=== PATIENT | male | born 1995 | race American Indian/Alaskan Native ===

== ENCOUNTER 2017-03-31 04:49 | Emergency (ER) | payer OTHER ==
[2017-03-31 05:36] LABS: Urine Drugs of Abuse Note Disclamer
[2017-03-31 05:48] LABS: Bacteria,Urine 1+ /HPF (Negative); Bilirubin,Urine NEG (Negative); Blood,Urine NEG (Negative); Ketones,Urine TR mg/dL (Negative); Leukocyte Esterase,Urine NEG (Negative); Mucus,Urine 1+ /HPF; Nitrite,Urine NEG (Negative)
--- NOTE | 2017-03-31 06:07 | Emergency Department Report ---
ED Psych HPI - General Chief Complaint: Psych Stated Complaint: KELLEE NORMAN Time Seen by Provider: 03/31/17 05:25 Source: patient Mode of arrival: Ambulatory - History of Present Illness Initial Comments: 21 YO MALE BROUGHT TO ED BECAUSE OF HOMOCIDAL IDEATION. HE DENIES THIS AND IS NONCOOPERATIVE AND THUS IS IN ISOLATION ROOM. WALKED WITH A LIMP AND WHEN ASKED ABOUT THIS , HE SAYS WHEN HE RECENTLY CAME FROM ALF IT BEGAN HURTING AND HAS GOTTEN WORSE. PT IS ANGRY Complaint: other (HOMOCIDAL IDEATION) -: Sudden Associated Psychiatric Symptoms: homicidal ideation History of same: Yes Improves With: none Worsens With: none Associated Symptoms: denies other symptoms Treatments Prior to Arrival: placed on mental he - Related Data Home Medications Medication Instructions Recorded Confirmed Last Taken No Known Home Medications [No 03/31/17 03/31/17 Unknown Reported Home Medications] Allergies Allergy/AdvReac Type Severity Reaction Status Date / Time No Known Allergies Allergy Verified 03/31/17 05:32 ED Review of Systems ROS: Stated complaint: KELLEE EVAL Other details as noted in HPI Constitutional: denies: chills, fever Eyes: denies: eye pain, eye discharge, vision change ENT: denies: ear pain, throat pain Respiratory: denies: cough, shortness of breath, wheezing Cardiovascular: denies: chest pain, palpitations Endocrine: no symptoms reported Gastrointestinal: denies: abdominal pain, nausea, diarrhea Genitourinary: denies: urgency, dysuria Musculoskeletal: arthralgia, other (LEFT MID THIGH PAIN). denies: back pain, joint swelling Skin: denies: rash, lesions Neurological: denies: headache, weakness, paresthesias Psychiatric: denies: anxiety, depression Hematological/Lymphatic: denies: easy bleeding, easy bruising ED Past Medical Hx - Past Medical History Previous Medical History?: Yes - Surgical History Past Surgical History?: No - Social History Smoking Status: Light Tobacco Smoker - Medications Home Medications: Home Medications Medication Instructions Recorded Confirmed Last Taken Type No Known Home Medications [No 03/31/17 03/31/17 Unknown History Reported Home Medications] ED Physical Exam - General Limitations: No Limitations General appearance: alert, other (ANGRY NONCOOPERATIVE) - Head Head exam: Present: atraumatic, normocephalic - Eye Eye exam: Present: normal appearance, EOMI - ENT ENT exam: Present: mucous membranes moist - Neck Neck exam: Present: normal inspection - Respiratory Respiratory exam: Present: normal lung sounds bilaterally. Absent: respiratory distress - Cardiovascular Cardiovascular Exam: Present: regular rate, normal rhythm. Absent: systolic murmur, diastolic murmur, rubs, gallop - GI/Abdominal GI/Abdominal exam: Present: soft, normal bowel sounds - Rectal Rectal exam: Present: deferred - Extremities Exam Extremities exam: Present: normal inspection, tenderness (LEFT MID THIGH) - Back Exam Back exam: Present: normal inspection, full ROM - Neurological Exam Neurological exam: Present: alert, oriented X3, CN II-XII intact, abnormal gait (SECONDARY TO PAIN) - Psychiatric Psychiatric exam: Present: agitated, other (ANGRY) - Skin Skin exam: Present: warm, dry, intact, normal color. Absent: rash Critical care attestation.: If time is entered above; I have spent that time in minutes in the direct care of this critically ill patient, excluding procedure time. ED Disposition Clinical Impression: Oppositional defiant behavior Condition: Stable Referrals: PRIMARY CARE, [Primary Care Provider] - 3-5 Days
[2017-03-31 06:18] LABS: Basophils % (Auto) 0.2 % (0.0-1.8); Eosinophils % (Auto) 0.4 % (0.0-4.3); Hematocrit 44.4 % (35.5-45.6); Hemoglobin 14.9 gm/dl (11.8-15.2); Mean Corpuscular HGB Conc 34 % (32-34); Mean Corpuscular Hemoglobin 32 pg (28-32); Mean Corpuscular Volume 95 fl (84-94); Platelet Count 337 K/mm3 (140-440); Red Blood Count 4.69 M/mm3 (3.65-5.03); Red Cell Distribution Width 13.2 % (13.2-15.2); White Blood Count 11.2 K/mm3 (4.5-11.0)
[2017-03-31 06:25] LABS: Anion Gap 17 mmol/L; BUN/Creatinine Ratio 12; Blood Urea Nitrogen 15 mg/dL (9-20); Calcium 9.6 mg/dL (8.4-10.2); Carbon Dioxide 27 mmol/L (22-30); Chloride 104.7 mmol/L (98-107); Glucose 117 mg/dL (75-100); Potassium 4.4 mmol/L (3.6-5.0); Sodium 144 mmol/L (137-145)
--- NOTE | 2017-03-31 07:01 | XRay Report ---
FINAL REPORT EXAM: XR HIP 2-3V LT HISTORY: Left Hip PAIN TECHNIQUE: Three views of the left hip and pelvis were obtained. FINDINGS: The left hip joint appears normal. The bony pelvic ring appears intact. The SI joints and right hip joint appear normal. The soft tissues are unremarkable. IMPRESSION: Within normal limits.
--- NOTE | 2017-03-31 07:07 | XRay Report ---
FINAL REPORT EXAM: XR KNEE 1-2V LT HISTORY: Left Knee PAIN TECHNIQUE: AP and lateral views of the left knee were submitted. FINDINGS: There are no skeletal or soft tissue abnormalities. IMPRESSION: Normal exam.
--- NOTE | 2017-03-31 07:09 | XRay Report ---
FINAL REPORT EXAM: XR FEMUR 2+V LT HISTORY: Left THIGH PAIN TECHNIQUE: Three views of the left femur were obtained. FINDINGS: There are no skeletal or soft tissue abnormalities. IMPRESSION: Within normal limits.
--- NOTE | 2017-03-31 13:03 | Consultation ---
History of Present Illness - Reason for Consult Consult date: 03/31/17 Reason for consult: Mental Healt Evaluation Requesting physician: GAURANG MCGREGOR - Chief Complaint Chief complaint: "I was upset" - History of Present Psychiatric Illness 21 y.o. AA male presenting to [facility] for HI's. Today patient is calm and cooperative during the assessment. He stated that he was angry when he made the statement about wanting to kill his brother. He stated that he was drinking ( etoh) (4 beers) prior to that statement. He stated that his brother and some other guys got into an argument and things escalated for no reason. When asked about a mental health dx, he stated that he was dx with Bipolar DO in [facility] a couple months ago. He stated that he took a pill for Bipolar DO, but cannot recall the name of the medication. He denies being irritable and depressed, but admit to having problems initiating sleep. He denies SI/HI's and AVH's. He denies recreational drug use, but stated that he does consume alcohol (etoh) often. Medications and Allergies Allergies Allergy/AdvReac Type Severity Reaction Status Date / Time No Known Allergies Allergy Verified 03/31/17 05:32 Home Medications Medication Instructions Recorded Confirmed Last Taken Type No Known Home Medications [No 03/31/17 03/31/17 Unknown History Reported Home Medications] Past psychiatric history - Past Medical History Past Medical History: other (Leg pain bilaterally) Past Surgical History: No surgical history - past Psychiatric treatment and history psychiatric treatment history: He stated that he was dx with Bipolar DO in [facility]. Denies a fam psy hx. - Social History Social history: lives with family Mental Status Exam - Vital signs Last Vital Signs Temp 98.2 F 03/31/17 09:39 Pulse 87 03/31/17 09:39 Resp 20 03/31/17 09:39 BP 130/67 03/31/17 09:39 Pulse Ox 99 03/31/17 09:39 - Exam Narrative exam: MSE: Appearance: calm, cooperative Behavior: regular eye contact Speech: regular rate and tone Mood: "well" Affect: congruent to mood Thought Process: circumstantial Thought Content: denies SI/HI's and VH's Motor Activity: lying in bed Cognition: A/O x3 Insight: variable Judgment: variable Results Result Diagrams: 03/31/17 06:01 03/31/17 06:01 Abnormal lab results 03/31/17 03/31/17 03/31/17 Range/Units 05:34 06:01 06:01 WBC 11.2 H (4.5-11.0) K/mm3 MCV 95 H (84-94) fl Lymph % (Auto) 8.8 L (13.4-35.0) % Lymph # 1.0 L (1.2-5.4) K/mm3 Seg Neutrophils % 83.4 H (40.0-70.0) % Seg Neutrophils # 9.4 H (1.8-7.7) K/mm3 Glucose 117 H (75-100) mg/dL Ur Specific Ringle 1.034 H (1.003-1.030) All other labs normal. Assessment and Plan Assessment and plan: Impression: Unspecified Mood DO. Today patient is calm and cooperative during the assessment. DDx: R/O Alcohol Induced Mood DO Recommendation/Plan: Continue 1013 and gather collateral information to determine proper dispo. Start Benadryl 25 mg PO HS PRN for sleep.
[2017-03-31] MEDS ORDERED: BENADRYL PO PRN (16:54)
[2017-03-31] MEDS ORDERED: BENADRYL IV PRN (20:00)
[2017-03-31] MEDS ORDERED: BENADRYL ONE (22:02)
[2017-03-31] MEDS: BENADRYL IM PRN (22:05)
--- NOTE | 2017-04-01 15:29 | Progress Note ---
Subjective - Reason for Consult Consult date: 04/01/17 Reason for consult: Psychiatry Follow-up - Chief Complaint Chief complaint: "Can I leave" 21 y.o. AA male presenting to [facility] for HI's. Today patient is calm and cooperative during the assessment. The patient was asked about having a dx of Bipolar DO per yesterday's assessment, he stated, "I don't really know what I have." He denies any manic episodes and being depressed. Patient is completing his ADL, per the staff. He denies SI/HI's and AVH's. Mental Status Exam - Vital signs Last Vital Signs Temp 98.4 F 04/01/17 10:00 Pulse 69 04/01/17 10:00 Resp 16 04/01/17 10:00 BP 112/69 04/01/17 10:00 Pulse Ox 100 04/01/17 10:00 - Exam Narrative exam: MSE: Appearance: calm, cooperative Behavior: regular eye contact Speech: regular rate and tone Mood: "well" Affect: congruent to mood Thought Process: circumstantial Thought Content: denies SI/HI's and VH's Motor Activity: lying in bed Cognition: A/O x3 Insight: variable Judgment: variable Assessment and Plan Impression: Unspecified Mood DO. Today patient is calm and cooperative during the assessment. DDx: R/O Alcohol Induced Mood DO Recommendation/Plan: Continue 1013. Spoke with his Aunt Ms Mya Mcleod. She wasn't aware that the patient is in the hospital. She stated that she would forward the psy team's number to his mother who is aware of the situation to call. Her name is Janneth Cerda at [phone]. Continue Benadryl 25 mg PO HS PRN for sleep. Will continue to gather collateral to determine proper dispo.
[2017-04-01] MEDS: BENADRYL IM PRN (18:55)
--- NOTE | 2017-04-02 15:21 | Progress Note ---
Subjective - Reason for Consult Reason for consult: etoh intoxication Mental Status Exam - Vital signs Last Vital Signs Temp 98.1 F 04/02/17 09:03 Pulse 56 L 04/02/17 09:03 Resp 14 04/02/17 09:03 BP 113/59 04/02/17 09:03 Pulse Ox 98 04/01/17 19:45 Assessment and Plan Today the patient continues to report that he is no longer experiencing perceptual disturbances. Additionally, patient is not expressing suicidal or homicidal thoughts. Patient is not manifesting any symptoms of an acute psychotic type disorder evelyn or major depression. Per the observation of the last several days appears patient was acutely intoxicated and there were some initial perceptual disturbances as well as irregular belief patterns. The only irregular belief pattern that persist is the patient's insistence the patient's brother is far has been video recording him. We have contacted or attempted to contact the aunt as well as his mother; however, no collateral information has been obtained from them. At the current time, the patient notes that he would like to be discharged home and he is currently not meeting criteria to continue 1013. Patient notes that he is able to provide for his own housing as he has money to do so. Patient also reports that he is employed. He does not want to return back to live with his brother due to the circumstances of their living arrangement. General Appearance: casually dressed, no acute distress Sensorium/Consciousness: alert and responding to external stimuli; clear Orientation: person, place, time and situation Eye Contact: limited Attitude / Behavior: guarded Psychomotor & Musculoskeletal Activity: WNL Mood: ok Affect: constricted, limited range Speech / Language: fluent, with normal rate/rhythm/tone Thought Processes: organized, logical, linear Thought Content: no SI/HI Perception: no AVH Insight: limited Judgement: limitied Capacity for ADLs: independent Plan: Rescind 1013, seen on longer meets criteria Refer the patient to the [facility] for ongoing assessment for the emergence of a psychiatric disorder No psychotropic medications need to be prescribed at the time of admission Consult elementary school social worker to help coordinate a disposition. Patient notes he wants to go to a hotel in [place] and reports he has money to do so.
[2017-04-02 20:33] VITALS: BP 117/84
--- NOTE | 2017-04-02 22:13 | Event Note ---
Date: 04/02/17 Patient is a 21-year-old male who is 1013 has been rescinded. Patient has no suicidal or homicidal ideation and expresses clear goal-directed behavior. Patient will go back to his hotel per psych recommendations. Patient does not need any medications to go home with. Additional verbal discharge instructions were given.
== END 2017-04-02 22:30 | disposition home or self-care (01) ==
LOC: ED 04:49 → EEVIPCON 04:49 → ED 04-02 22:27
DX: R46.89 Other symptoms and signs involving appearance and behavior (principal); R45.850 Homicidal ideations; F17.200 Nicotine dependence, unspecified, uncomplicated
CPT/HCPCS: 36415; 73502; 73552; 73560; 80048; 80307; 81001; 85025; 96372; 99284; G0480; J1200; 80320; 99285

== ENCOUNTER 2020-05-30 00:21 | Emergency (ER) | payer MEDICARE ==
[2020-05-30 00:40] VITALS: BP 129/54
--- NOTE | 2020-05-30 01:55 | XRay Report ---
RIGHT HIP RADIOGRAPHS 2 VIEWS INDICATION / CLINICAL INFORMATION: hip pain COMPARISON: 03/31/2017 FINDINGS: BONES / JOINT(S): There are destructive changes along the superior aspect of the femoral heads bilate rally characteristic of advanced changes of osteonecrosis. There is degenerative change associated wi th this in both hip joints. No acute fracture or dislocation is seen. SOFT TISSUES: No significant abnormality. ADDITIONAL FINDINGS: None. Signer Name: Endy Angel MD Signed: 05/30/2020 1:51 AM Workstation Name: [id number]
--- NOTE | 2020-05-30 02:47 | Emergency Department Report ---
"ED General Adult HPI - General Chief complaint: Extremity Injury, Lower Stated complaint: LEG PAIN Source: patient Mode of arrival: Ambulatory Limitations: No Limitations - History of Present Illness Initial comments: 25-year-old male presents emerged department complaining of having multiple falls in the last 2 to 3 months for reasons unknown she has been seen at the emergency department and back orthopedic but cannot report what the assessments were. States has been having waxing and waning pain but appears to be progressively worsening. Notes that he has some type of chronic arthritic/degenerative issue with his hips but cannot recall the name. Reports no fever, chills, sweats reports no recent falls within the last week. States he wants a second opinion and was following with his hips because he feels that they are worsening and he does not know why. -: Gradual Quality: aching, dull Consistency: constant Improves with: none Worsens with: movement Associated Symptoms: denies other symptoms Treatments Prior to Arrival: none - Related Data Previous Rx's Medication Instructions Recorded Last Taken Type Ketorolac [Toradol] 10 mg PO Q6H PRN #14 tablet 05/30/20 Unknown Rx Allergies Allergy/AdvReac Type Severity Reaction Status Date / Time No Known Allergies Allergy Verified 03/31/17 05:32 ED Review of Systems ROS: Stated complaint: LEG PAIN Other details as noted in HPI Comment: All other systems reviewed and negative ED Past Medical Hx - Past Medical History Previous Medical History?: Yes Hx Arthritis: Yes Additional medical history: denies - Surgical History Past Surgical History?: Yes Additional Surgical History: denies pain - Social History Smoking Status: Former Smoker Substance Use Type: Alcohol - Medications Home Medications: Home Medications Medication Instructions Recorded Confirmed Last Taken Type Ketorolac [Toradol] 10 mg PO Q6H PRN #14 tablet 05/30/20 Unknown Rx ED Physical Exam - General Limitations: No Limitations General appearance: alert, in no apparent distress - Head Head exam: Present: atraumatic, normocephalic - Eye Eye exam: Present: normal appearance, PERRL, EOMI Pupils: Present: normal accommodation - ENT ENT exam: Present: normal exam, mucous membranes moist, TM's normal bilaterally - Neck Neck exam: Present: normal inspection, full ROM - Respiratory Respiratory exam: Present: normal lung sounds bilaterally. Absent: respiratory distress - Cardiovascular Cardiovascular Exam: Present: regular rate, normal rhythm. Absent: systolic murmur, diastolic murmur, rubs, gallop - GI/Abdominal GI/Abdominal exam: Present: soft, normal bowel sounds - Rectal Rectal exam: Present: deferred - Extremities Exam Extremities exam: Present: normal inspection, other (Pain to the hips with palpation.) - Back Exam Back exam: Present: normal inspection. Absent: CVA tenderness (R), CVA tenderne ss (L) - Neurological Exam Neurological exam: Present: alert, oriented X3, CN II-XII intact, normal gait - Psychiatric Psychiatric exam: Present: normal affect, normal mood - Skin Skin exam: Present: warm, dry, intact, normal color. Absent: rash ED Course Vital Signs 05/30/20 00:35 Temperature 98.1 F Pulse Rate 76 Respiratory 16 Rate Blood Pressure 129/54 O2 Sat by Pulse 99 Oximetry ED Medical Decision Making - Radiology Data Radiology results: report reviewed X-ray of the right hip compared to March 31, 2017 shows destructive changes along the superior aspect of the femoral heads bilaterally characteristic of advanced changes of osteonecrosis. There are degenerative changes associated with this in both hip joints. No acute fracture or dislocation seen. No significant soft tissue abnormality. No additional findings. Read by Dr. Larry Angel Critical care attestation.: If time is entered above; I have spent that time in minutes in the direct care of this critically ill patient, excluding procedure time. ED Disposition Clinical Impression: Chronic hip pain, Osteonecrosis Disposition: - TO HOME OR SELFCARE Is pt being admited?: No Does the pt Need Aspirin: No Condition: Stable Instructions: Chronic Pain (ED), Hip Pain, Joint Pain Additional Instructions: Osteonecrosis (ON) OVERVIEW | DIAGNOSIS AND TESTS | MANAGEMENT AND TREATMENT | PREVENTION | OUTLOOK / PROGNOSIS | LIVING WITH What is osteonecrosis? Osteonecrosis occurs when something restricts or cuts off blood flow to a bone. Bone tissue starts to , and as it loses its structural integrity, tiny breaks called microfractures begin to form. These microfractures can cause the collapse of the weight-bearing surface of the bone, causing pain. Most people with osteonecrosis need surgery to treat the problem. Sometimes, joint replacement is the best option. Healthcare providers may refer to osteonecrosis as avascular necrosis or aseptic necrosis. Osteo means bone, while necrosis refers to tissue . How common is osteonecrosis? Between 10,000 and 20,000 Americans develop osteonecrosis every year. It can affect all ages and genders. Where does osteonecrosis develop? Osteonecrosis typically affects the ball-part of the thighbone (femur) where it joins the hip (femoral head). But it can affect any bone, most commonly those in the: Ankles. Jaw. Knees. Upper arm (humerus) and shoulders. What are the types of osteonecrosis? Types of osteonecrosis include: Traumatic osteonecrosis occurs when a bone breaks into two or more pieces and those pieces no longer align. The misalignment can disrupt blood flow to the bone. This kind of injury is a displaced fracture. Osteonecrosis may also result from a dislocated joint. Nontraumatic osteonecrosis occurs when medical conditions or problems restrict blood flow to bone. Nontraumatic osteonecrosis often affects the same bones on both sides of the body. If you have osteonecrosis in one shoulder or hip, youre likely to have it in the opposite shoulder or hip, too. What causes osteonecrosis? Your skeletal system continually makes new bone to replace aging bone. This process requires a healthy blood supply. In people with osteonecrosis, something slows or stops blood flow to bone. As a result, old bone breaks down before the body can replace it. If blood flow isnt restored, bone tissue dies. About 20% of the time, osteonecrosis occurs without any obvious cause. Older women (and occasionally men) who have osteoporosis may experience spontaneous osteonecrosis of the knee (SPONK). Normal wear and tear on a weakened bone causes an insufficiency/stress fracture that leads to osteonecrosis. What are the risk factors for osteonecrosis? People older than 65 are more prone to hip fractures and dislocations that lead to traumatic osteonecrosis. About 20% of people who dislocate their hips develop osteonecrosis afterward. Risk factors for nontraumatic osteonecrosis include: Blood disorders like sickle cell anemia. Cancer treatments, such as radiation therapy. Decompression sickness in scuba divers. Other less common risk factors for nontraumatic osteonecrosis include Alcohol misuse and smoking. HIV. Lupus. Organ transplants. Prolonged use of corticosteroids to treat conditions like lupus. What are the symptoms of osteonecrosis? You might not notice when osteonecrosis first develops. In the early stage, the disease rarely causes pain or other symptoms. As bone tissue dies, tiny fractures form. The bone starts to compress and collapse. You might first notice pain when you put pressure on the damaged area. This pain lessens when you rest. Gradually, the bone and the surrounding joint surface start to decay. This process can take weeks or months. As it continues, the pain intensifies. You may experience joint stiffness and have limited, painful range of motion. You may limp if the problem affects the hips or knees. It can also be difficult to stand or walk. Diagnosis and Tests How is osteonecrosis diagnosed? Your healthcare provider will assess your symptoms and perform a physical exam. You may get one or more of these tests: Blood tests: A blood test can check for underlying disorders or causes. X-rays: These tests detect bone fractures and arthritis. Imaging tests: MRIs provide images of bones, muscles and tissues to detect bone collapse. An MRI is better than X-rays at detecting osteonecrosis early. Management and Treatment What are the complications of osteonecrosis? Very rarely, osteonecrosis leads to limb loss (amputation). More commonly, the condition increases your chances of developing severe, painful osteoarthritis. How is osteonecrosis managed or treated? Regardless of whether you have traumatic or nontraumatic osteonecrosis, treatments focus on improving mobility. Your care will also aim to preserve bones and joints. Your healthcare provider will develop a treatment plan based on: Affected bone. Disease stage (early or late). Extent of bone damage. Underlying cause. Your age. If you catch the disease early and it affects a small area that isnt weight- bearing, you may get better with home care. Nonsteroidal anti-inflammatory drugs (NSAIDs), rest and physical therapy can help. These treatments are most effective for small bones that dont bear a lot of weight. In most cases, youll need surgery. Surgical options include: Core decompression: Your surgeon drills one or more small holes (cores) into the affected bone to relieve pressure. In two out of three people, this procedure delays or prevents the need for joint replacement surgery. Bone grafting: During a bone graft, your surgeon takes healthy bone from one part of your body and transplants it to take the place of diseased bone. Osteotomy: This procedure reshapes and repositions the bone to take stress off of a damaged joint. Joint replacement: If you have significant bone collapse, your provider may replace the damaged joint with an artificial one. Hip replacements and knee replacements are 95% effective at relieving pain and restoring mobility in people with osteonecrosis. Prevention How can I prevent osteonecrosis? Cutting out alcohol and smoking can lower your risk of osteonecrosis. If you take corticosteroids for a chronic medical condition like lupus, talk to your healthcare provider. You may be able to reduce the dosage or length of treatment. In many instances, there isnt anything you can do to prevent osteonecrosis. [place] / Prognosis What is the prognosis (outlook) for people who have osteonecrosis? Most people with osteonecrosis eventually need surgery to ease pain and improve mobility. The outlook may be better with a faster diagnosis. Your prognosis for recovery is better the earlier you begin treatment. Living With When should I call the healthcare provider? You should call your healthcare provider if you experience: Pain that doesnt improve with rest or pain relievers. Pain that makes walking or movement difficult. Unexplained limping. What questions should I ask my healthcare provider? You may want to ask your healthcare provider: Why did I get osteonecrosis? What is the best treatment for me? What are the treatment risks? What type of follow-up care do I need after treatment? Should I look out for signs of complications? A note from [facility] Osteonecrosis is a painful condition that can greatly affect your ability to get around and enjoy life. Many people with this condition need surgery. If you have a health problem or take medications that increase your risk for osteonecrosis, talk to your healthcare provider. Its important to be familiar with the warning signs of this bone disease. You may be able to reduce bone damage or bone loss if you detect osteonecrosis and start treatment early. Prescriptions: Ketorolac [Toradol] 10 mg PO Q6H PRN #14 tablet PRN Reason: Pain Referrals: PRIMARY CAREMD [Primary Care Provider] - 3-5 Days RAJ SINGH MD [Staff Physician] - 3-5 Days"
== END 2020-05-30 03:15 | disposition home or self-care (01) ==
LOC: ED 00:21
DX: M87.9 Osteonecrosis, unspecified (principal); M19.90 Unspecified osteoarthritis, unspecified site; Z87.891 Personal history of nicotine dependence; Z79.899 Other long term (current) drug therapy
CPT/HCPCS: 99283

== ENCOUNTER 2020-06-01 21:39 | Emergency (ER) | payer MEDICARE ==
[2020-06-01 23:53] VITALS: BP 122/55
== END 2020-06-02 00:20 | disposition left against medical advice (07) ==
LOC: ED 21:39
DX: M79.605 Pain in left leg (principal); Z53.21 Procedure and treatment not carried out due to patient leaving prior to being seen by health care provider

== ENCOUNTER 2020-06-15 02:06 | Emergency (ER) | payer MEDICARE ==
[2020-06-15 02:19] VITALS: BP 119/67
--- NOTE | 2020-06-15 02:28 | Emergency Department Report ---
ED General Adult HPI - General Chief complaint: Skin Rash Stated complaint: RASH ON GROIN Source: patient Mode of arrival: Ambulatory Limitations: No Limitations - History of Present Illness Initial comments: Patient is a 25-year-old -[place] male with history of osteoarthritis who presents to the ED with acute exacerbation of his chronic arthritic pain characterized by severe right knee pain for the last 2 days. Patient also complains of dry scaly itchy erythematous rashes on right inguinal area for the last 2 days. Patient denies testicular pain, chest pain, shortness of breath, dysuria, urine frequency and urgency, fall, traumatic injury, heavy lifting, low back pain, hip pain, fever, chills, cough, hematuria or abdominal pain. MD Complaint: right inguinal itchy rash; right knee pain -: Sudden, days(s) (2) Location: genitals (right inguinal), lower extremity (right knee) Radiation: non-radiation Severity scale (0 -10): 6 Quality: aching, sharp Consistency: constant Improves with: none Worsens with: none Associated Symptoms: denies other symptoms, rash (Mildly erythematous dry scaly rash on right inguinal area). denies: confusion, chest pain, cough, diaphoresis, fever/chills, headaches, loss of appetite, malaise, nausea/vomiting, shortness of breath, syncope, weakness, other Treatments Prior to Arrival: none - Related Data Previous Rx's Medication Instructions Recorded Last Taken Type Ketorolac [Toradol] 10 mg PO Q6H PRN #14 tablet 05/30/20 Unknown Rx Naproxen 500 mg PO Q12H PRN #30 tablet 06/15/20 Unknown Rx Nystatin Oint [Mycostatin Oint] 1 applicatio TP BID #1 tube 06/15/20 Unknown Rx Allergies Allergy/AdvReac Type Severity Reaction Status Date / Time No Known Allergies Allergy Verified 03/31/17 05:32 ED Review of Systems ROS: Stated complaint: RASH ON GROIN Other details as noted in HPI Constitutional: denies: chills, fever Eyes: denies: eye pain, eye discharge, vision change ENT: denies: ear pain, throat pain Respiratory: denies: cough, shortness of breath, wheezing Cardiovascular: denies: chest pain, palpitations Endocrine: no symptoms reported Gastrointestinal: denies: abdominal pain, nausea, diarrhea Genitourinary: denies: urgency, dysuria Musculoskeletal: arthralgia (Right knee pain). denies: back pain, joint swelling Skin: rash (Dry scaly erythematous rashes on right inguinal area). denies: lesions Neurological: denies: headache, weakness, paresthesias Psychiatric: denies: anxiety, depression Hematological/Lymphatic: denies: easy bleeding, easy bruising ED Past Medical Hx - Past Medical History Previous Medical History?: Yes Hx Arthritis: Yes Additional medical history: denies - Surgical History Past Surgical History?: No Additional Surgical History: denies pain - Social History Smoking Status: Never Smoker Substance Use Type: None - Medications Home Medications: Home Medications Medication Instructions Recorded Confirmed Last Taken Type Ketorolac [Toradol] 10 mg PO Q6H PRN #14 tablet 05/30/20 Unknown Rx Naproxen 500 mg PO Q12H PRN #30 tablet 06/15/20 Unknown Rx Nystatin Oint [Mycostatin Oint] 1 applicatio TP BID #1 tube 06/15/20 Unknown Rx ED Physical Exam - General Limitations: No Limitations General appearance: alert, in no apparent distress - Head Head exam: Present: atraumatic, normocephalic, normal inspection - Eye Eye exam: Present: normal appearance, PERRL, EOMI Pupils: Present: normal accommodation - ENT ENT exam: Present: normal exam, normal orophraynx, mucous membranes moist, TM's normal bilaterally, normal external ear exam - Neck Neck exam: Present: normal inspection, full ROM - Respiratory Respiratory exam: Present: normal lung sounds bilaterally. Absent: respiratory distress, wheezes, rales, rhonchi, stridor, chest wall tenderness, accessory muscle use, prolonged expiratory - Cardiovascular Cardiovascular Exam: Present: regular rate, normal rhythm, normal heart sounds. Absent: systolic murmur, diastolic murmur, rubs, gallop - GI/Abdominal GI/Abdominal exam: Present: soft, normal bowel sounds. Absent: tenderness, guarding, rebound, hyperactive bowel sounds, organomegaly, mass - External exam: Present: other (Dry scaly mildly erythematous rashes on right inguinal area) - Extremities Exam Extremities exam: Present: normal inspection, full ROM, tenderness (Palpable right knee tenderness), normal capillary refill. Absent: joint swelling - Back Exam Back exam: Present: normal inspection, full ROM. Absent: tenderness, CVA tenderness (R), CVA tenderness (L), paraspinal tenderness, vertebral tenderness - Neurological Exam Neurological exam: Present: alert, oriented X3, CN II-XII intact, normal gait, reflexes normal - Psychiatric Psychiatric exam: Present: normal affect, normal mood - Skin Skin exam: Present: warm, dry, intact, rash (Mild erythematous dry scaly rashes on right inguinal area), erythema ED Course Vital Signs 06/15/20 02:16 Temperature 98.5 F Pulse Rate 70 Respiratory 18 Rate Blood Pressure 119/67 O2 Sat by Pulse 99 Oximetry ED Medical Decision Making - Medical Decision Making This is a 25-year-old -[place] male with history of osteoarthritis who presents to the ED with acute exacerbation of his chronic arthritic pain characterized by severe right knee pain for the last 2 days. Patient also complains of dry scaly itchy erythematous rashes on right inguinal area for the last 2 days. In the ED, patient is alert and oriented x3 and is not in any distress. Patient is hemodynamically stable. Patient will discharge home on medications based on physical exam findings. Patient is advised return to the ED immediately if symptoms get worse. - Differential Diagnosis Chronic osteoarthritis; tinea cruris; folliculitis; knee sprain; Critical care attestation.: If time is entered above; I have spent that time in minutes in the direct care of this critically ill patient, excluding procedure time. ED Disposition Clinical Impression: Chronic osteoarthritis, Chronic pain of right knee, Tinea cruris Disposition: DC-01 TO HOME OR SELFCARE Is pt being admited?: No Does the pt Need Aspirin: No Condition: Stable Instructions: Chronic Knee Pain, Adult, [id number], Jock Itch, [id number], Arthritis, [id number], Musculoskeletal Pain Additional Instructions: Take medication with food, drink plenty of fluids and follow-up with your primary care physician in 7 to 10 days for reevaluation. Return to the ED immediately if symptoms get worse. Prescriptions: Nystatin Oint [Mycostatin Oint] 1 applicatio TP BID #1 tube Naproxen 500 mg PO Q12H PRN #30 tablet PRN Reason: Pain , Severe (7-10) Referrals: [facility] [Provider Group] - 3-5 Days Time of Disposition: 02:29 Print Language: CZECH
== END 2020-06-15 02:48 | disposition home or self-care (01) ==
LOC: ED 02:06
DX: B35.6 Tinea cruris (principal); M25.561 Pain in right knee; G89.29 Other chronic pain; M19.91 Primary osteoarthritis, unspecified site; Z79.899 Other long term (current) drug therapy
CPT/HCPCS: 99282